=== PATIENT | male | born 1995 | race Two or more races ===

== ENCOUNTER 2016-07-17 14:09 | Emergency (ER) | payer OTHER | END 2016-07-17 16:20 | disposition home or self-care (01) | LOC: CED 14:09 | DX: S61.315A Laceration without foreign body of left ring finger with damage to nail, initial encounter (principal); F17.210 Nicotine dependence, cigarettes, uncomplicated; W26.0XXA Contact with knife, initial encounter; Y92.009 Unspecified place in unspecified non-institutional (private) residence as the place of occurrence of the external cause; Z23 Encounter for immunization | CPT/HCPCS: 12002; 90471; 90715; 99283 ==